=== PATIENT | male | born 1960 | race Caucasian/White ===

== ENCOUNTER 2017-01-18 20:30 | Outpatient (CLI) | payer OTHER | END 2017-01-18 20:31 | disposition home or self-care (01) | LOC: SLEEPLAB 20:30 | PROVIDERS: ATTEND Family Medicine | DX: G47.33 Obstructive sleep apnea (adult) (pediatric) (principal); G47.10 Hypersomnia, unspecified; G47.00 Insomnia, unspecified; R06.83 Snoring | CPT/HCPCS: 95810 ==

== ENCOUNTER 2017-02-17 19:30 | Outpatient (CLI) | payer OTHER | END 2017-02-17 19:31 | disposition home or self-care (01) | LOC: SLEEPLAB 19:30 | PROVIDERS: ATTEND Family Medicine | DX: G47.33 Obstructive sleep apnea (adult) (pediatric) (principal); R06.83 Snoring | CPT/HCPCS: 95811 ==

== ENCOUNTER 2018-01-21 17:26 | Emergency (ER) | payer OTHER ==
[2018-01-21] MEDS ORDERED: Fentanyl 100 MCG/2 ML VIAL ONE (17:37)
[2018-01-21] MEDS ORDERED: Ibuprofen 800 MG TAB ONE (18:03)
--- NOTE | 2018-01-21 18:11 | RAD ---
THREE VIEWS LEFT SHOULDER 01/21/18 HISTORY: Fall. Possible dislocation. AP internally, externally and scapular Y-views left shoulder obtained. Three views left shoulder demonstrate no evidence of left shoulder fractures, subluxations, or bony l esions. IMPRESSION: Normal three views left shoulder. POS: [facility]
== END 2018-01-21 18:26 | disposition home or self-care (01) ==
LOC: SCSER 17:26
DX: S40.012A Contusion of left shoulder, initial encounter (principal); X50.1XXA Overexertion from prolonged static or awkward postures, initial encounter
CPT/HCPCS: 96372; J3010

== ENCOUNTER 2018-01-26 09:57 | Outpatient (CLI) | payer OTHER ==
--- NOTE | 2018-01-26 12:26 | CT ---
LEFT SHOUDLER CT SCAN WITHOUT IV CONTRAST: HISTORY: A 57-year-old male with history of S43.005A, left shoulder pain following an injury on 01/31/2018. FINDINGS: Slightly comminuted possibly mildly impacted fracture involving the humeral neck. No evidence for di slocation. The scapula appears intact. The AC joint appears unremarkable. IMPRESSION: Mildly displaced slightly comminuted mildly impacted left humeral neck fracture. No dislocation of h umeral neck fracture. POS: [facility]
== END 2018-01-26 09:58 | disposition home or self-care (01) ==
LOC: SCSCT 09:57
PROVIDERS: ATTEND Orthopaedic Surgery
DX: S43.005A Unspecified dislocation of left shoulder joint, initial encounter (principal); S42.292A Other displaced fracture of upper end of left humerus, initial encounter for closed fracture